=== PATIENT | male | born 1965 | race Caucasian/White ===

== ENCOUNTER → 2023-01-01 | Outpatient (REF) | payer MEDICARE, SELFPAY ==
[2023-01-01 08:25] LABS: Hematocrit 36.7 % (40-54); Hemoglobin 10.8 g/dL (13.0-16.5); Mean Corp Hgb Conc 29.4 g/dL (32-36); Mean Corpuscular Hgb 26.9 pg (27.0-32.0); Mean Corpuscular Volume 91.3 fL (80-94); POSITIVE MORPHOLOGY YES; Platelet Count 265 K/mm3 (150-450); RBC Distribution Width SD 70.1 fl (35.1-43.9); Red Blood Count 4.02 M/mm3 (4.6-6.2); White Blood Count 9.5 K/mm3 (4.4-11.0)
[2023-01-01 08:27] LABS: Scan Indicated on CBC? Y/N YES- FLAGS NOTED
[2023-01-01 08:37] LABS: Vitamin D,25 Hydroxy 76.6 ng/mL
[2023-01-01 08:46] LABS: International Normalized Ratio 2.3; Prothrombin Time (Protime)PT. 25.4 SECONDS (11.7-14.9)
[2023-01-01 08:59] LABS: ALB/GLOB Ratio 0.4 RATIO (0.9-2.4); AST(SGOT) 41 U/L (15-37); Alanine Aminotransfer ALT/SGPT 25 U/L (16-61); Albumin, Serum 1.3 g/dL (3.2-5.0); Alkaline Phosphatase 212 U/L (45-117); Anion Gap 4 (5-15); BUN 8 mg/dL (7-18); BUN/Creat Ratio 12.1 RATIO (10-20); Calcium,Total 7.5 mg/dL (8.5-10.1); Chloride 108 mmol/L (98-107); Cholesterol 79 mg/dL (200); Creatinine, Serum 0.66 mg/dL (0.70-1.30); EST Glomerular Filtration Rate 133 mL/min (>60); Est Glom Filt Rate - Afr Amer 160 mL/min (>60); Globulin 3.6 g/dL (2.2-4.2); Glucose 91 mg/dL (74-106); High Density Lipoprotein 14 mg/dL; Magnesium 1.8 mg/dL (1.6-2.6); Potassium 4.1 mmol/L (3.5-5.1); Protein, Total 4.9 g/dL (6.4-8.2); Sodium Level 141 mmol/L (136-145); Thyroid Stim Hormone (TSH) 2.66 uIU/mL (0.358-3.74); Triglycerides 69 mg/dL; Very Low Density Lipoprotein 14 mg/dL (5-40)
[2023-01-01 20:24] LABS: Hemoglobin A1c 4.4 % (3.8-5.6)
== END ==
LOC: OLS.ACW300 05:00
PROVIDERS: Visit Provider Family Medicine
DX: T81.32XD Disruption of internal operation (surgical) wound, not elsewhere classified, subsequent encounter (principal); D64.9 Anemia, unspecified; E27.2 Addisonian crisis
CPT/HCPCS: 36415; 80053; 80061; 82306; 83036; 83735; 84443; 85027; 85610

== ENCOUNTER → 2023-01-04 | Outpatient (REF) | payer MEDICARE, SELFPAY ==
[2023-01-04 07:21] LABS: Prothrombin Time Fingerstick 32.5 SEC (11.7-14.9)
== END ==
LOC: OLS.ACW300 05:00
PROVIDERS: PCP Family Medicine; Visit Provider Family Medicine
DX: Z79.01 Long term (current) use of anticoagulants (principal)
CPT/HCPCS: 36416; 85610

== ENCOUNTER → 2023-02-06 | Outpatient (REF) | payer MEDICARE, SELFPAY ==
[2023-02-06 11:36] LABS: Hematocrit 30.9 % (40-54); Hemoglobin 9.3 g/dL (13.0-16.5); Mean Corp Hgb Conc 30.1 g/dL (32-36); Mean Corpuscular Hgb 27.7 pg (27.0-32.0); Mean Platelet Vol. 10.7 fl (6.2-12.0); Platelet Count 212 K/mm3 (150-450); RBC Distribution Width CV 17.3 % (11.6-14.6); RBC Distribution Width SD 58.2 fl (35.1-43.9); Red Blood Count 3.36 M/mm3 (4.6-6.2); White Blood Count 4.9 K/mm3 (4.4-11.0)
[2023-02-06 11:45] LABS: International Normalized Ratio 1.3; Prothrombin Time (Protime)PT. 16.1 SECONDS (11.7-14.9)
[2023-02-06 11:56] LABS: Vitamin D,25 Hydroxy 62.9 ng/mL
[2023-02-06 12:13] LABS: ALB/GLOB Ratio 0.5 RATIO (0.9-2.4); AST(SGOT) 30 U/L (15-37); Alanine Aminotransfer ALT/SGPT 19 U/L (16-61); Albumin, Serum 2.1 g/dL (3.2-5.0); Alkaline Phosphatase 93 U/L (45-117); Anion Gap 6 (5-15); BUN 9 mg/dL (7-18); BUN/Creat Ratio 10.3 RATIO (10-20); Calcium,Total 8.1 mg/dL (8.5-10.1); Chloride 108 mmol/L (98-107); Cholesterol 111 mg/dL (200); Creatinine, Serum 0.87 mg/dL (0.70-1.30); EST Glomerular Filtration Rate 96 mL/min (>60); Est Glom Filt Rate - Afr Amer 117 mL/min (>60); Glucose 75 mg/dL (74-106); High Density Lipoprotein 58 mg/dL; Potassium 3.4 mmol/L (3.5-5.1); Protein, Total 6.1 g/dL (6.4-8.2); Sodium Level 139 mmol/L (136-145); Thyroid Stim Hormone (TSH) 3.73 uIU/mL (0.358-3.74); Triglycerides 55 mg/dL; Very Low Density Lipoprotein 11 mg/dL (5-40)
[2023-02-06 13:30] LABS: Hemoglobin A1c 4.2 % (3.8-5.6)
== END ==
LOC: OLS.ACW300 06:30
PROVIDERS: PCP Family Medicine; Visit Provider Family Medicine
DX: Z79.01 Long term (current) use of anticoagulants (principal); E55.9 Vitamin D deficiency, unspecified; Z79.899 Other long term (current) drug therapy; T81.32XA Disruption of internal operation (surgical) wound, not elsewhere classified, initial encounter; S30.1XXA Contusion of abdominal wall, initial encounter
CPT/HCPCS: 36415; 80053; 80061; 82306; 83036; 84443; 85027; 85610

== ENCOUNTER → 2023-02-07 | Outpatient (REF) | payer MEDICARE, SELFPAY ==
[2023-02-07 08:19] LABS: INR Fingerstick 1.5; Prothrombin Time Fingerstick 16.7 SEC (11.7-14.9)
== END ==
LOC: OLS.ACW300 05:00
PROVIDERS: PCP Family Medicine; Visit Provider Family Medicine
DX: Z79.01 Long term (current) use of anticoagulants (principal)
CPT/HCPCS: 36416; 85610

== ENCOUNTER → 2023-02-08 | Outpatient (REF) | payer MEDICARE, SELFPAY ==
[2023-02-08 08:59] LABS: International Normalized Ratio 1.4; Prothrombin Time (Protime)PT. 17.4 SECONDS (11.7-14.9)
== END ==
LOC: OLS.ACW300 06:00
PROVIDERS: PCP Family Medicine; Visit Provider Family Medicine
DX: Z79.01 Long term (current) use of anticoagulants (principal); T81.32XD Disruption of internal operation (surgical) wound, not elsewhere classified, subsequent encounter; M62.81 Muscle weakness (generalized); D64.9 Anemia, unspecified; W19.XXXD Unspecified fall, subsequent encounter
CPT/HCPCS: 36415; 85610

== ENCOUNTER → 2023-02-09 08:10 | Outpatient (REF) | payer MEDICARE, SELFPAY ==
[2023-02-09 09:40] LABS: International Normalized Ratio 1.5; Prothrombin Time (Protime)PT. 18.6 SECONDS (11.7-14.9)
== END ==
LOC: PR 08:10
PROVIDERS: PCP Family Medicine; Visit Provider Family Medicine
DX: T81.32XD Disruption of internal operation (surgical) wound, not elsewhere classified, subsequent encounter (principal); S30.1XXD Contusion of abdominal wall, subsequent encounter; R27.9 Unspecified lack of coordination
CPT/HCPCS: 36415; 85610

== ENCOUNTER → 2023-02-11 | Outpatient (REF) | payer MEDICARE, SELFPAY ==
[2023-02-11 08:09] LABS: Prothrombin Time Fingerstick 31.9 SEC (11.7-14.9)
== END ==
LOC: OLS.ACW300 05:00
PROVIDERS: PCP Family Medicine; Visit Provider Family Medicine
DX: Z79.01 Long term (current) use of anticoagulants (principal)
CPT/HCPCS: 36416; 85610

== ENCOUNTER → 2023-02-12 | Outpatient (REF) | payer MEDICARE, SELFPAY ==
[2023-02-12 11:06] LABS: International Normalized Ratio 2.8; Prothrombin Time (Protime)PT. 29.7 SECONDS (11.7-14.9)
== END ==
LOC: OLS.ACW300 09:40
PROVIDERS: PCP Family Medicine; Visit Provider Family Medicine
DX: Z79.01 Long term (current) use of anticoagulants (principal); Z86.711 Personal history of pulmonary embolism
CPT/HCPCS: 36415; 85610

== ENCOUNTER → 2023-02-13 | Outpatient (REF) | payer MEDICARE, SELFPAY ==
[2023-02-13 09:05] LABS: INR Fingerstick 2.6; Prothrombin Time Fingerstick 27.7 SEC (11.7-14.9)
== END ==
LOC: OLS.ACW300 05:00
PROVIDERS: PCP Family Medicine; Visit Provider Family Medicine
DX: Z79.01 Long term (current) use of anticoagulants (principal); Z79.899 Other long term (current) drug therapy
CPT/HCPCS: 36416; 85610

== ENCOUNTER → 2023-07-19 | Outpatient (REF) | payer MEDICARE, SELFPAY ==
[2023-07-19 08:21] LABS: Hematocrit 31.8 % (40-54); Hemoglobin 9.7 g/dL (13.0-16.5); Mean Corp Hgb Conc 30.5 g/dL (32-36); Mean Corpuscular Volume 95.2 fL (80-94); Mean Platelet Vol. 10.8 fl (6.2-12.0); POSITIVE MORPHOLOGY YES; Platelet Count 330 K/mm3 (150-450); RBC Distribution Width CV 21.4 % (11.6-14.6); RBC Distribution Width SD 75.7 fl (35.1-43.9); Red Blood Count 3.34 M/mm3 (4.6-6.2); White Blood Count 6.9 K/mm3 (4.4-11.0)
[2023-07-19 08:27] LABS: Scan Indicated on CBC? Y/N YES- FLAGS NOTED
[2023-07-19 08:33] LABS: Vitamin D,25 Hydroxy 26.7 ng/mL
[2023-07-19 08:51] LABS: Hemoglobin A1c 4.5 % (3.8-5.6)
[2023-07-19 09:09] LABS: Differential Comment SCANNED
[2023-07-19 09:19] LABS: Prothrombin Time (Protime)PT. 22.4 SECONDS (11.7-14.9)
[2023-07-19 10:18] LABS: ALB/GLOB Ratio 0.5 RATIO (0.9-2.4); AST(SGOT) 28 U/L (15-37); Alanine Aminotransfer ALT/SGPT 22 U/L (16-61); Albumin, Serum 1.6 g/dL (3.2-5.0); Alkaline Phosphatase 109 U/L (45-117); Anion Gap 5 (5-15); BUN 7 mg/dL (7-18); BUN/Creat Ratio 7.5 RATIO (10-20); Calcium,Total 7.4 mg/dL (8.5-10.1); Chloride 105 mmol/L (98-107); Cholesterol 149 mg/dL (200); Creatinine, Serum 0.93 mg/dL (0.70-1.30); EST Glomerular Filtration Rate 89 mL/min (>60); Est Glom Filt Rate - Afr Amer 108 mL/min (>60); Globulin 3.4 g/dL (2.2-4.2); Glucose 48 mg/dL (74-106); High Density Lipoprotein 57 mg/dL; Magnesium 1.8 mg/dL (1.6-2.6); Potassium 3.3 mmol/L (3.5-5.1); Sodium Level 139 mmol/L (136-145); Thyroid Stim Hormone (TSH) 5.89 uIU/mL (0.358-3.74); Triglycerides 83 mg/dL; Uric Acid 6.6 mg/dL (3.5-7.2); Very Low Density Lipoprotein 17 mg/dL (5-40)
== END ==
LOC: OLS.ACW300 05:00
PROVIDERS: PCP Family Medicine; Visit Provider Family Medicine
DX: G93.40 Encephalopathy, unspecified (principal); S30.1XXD Contusion of abdominal wall, subsequent encounter; M62.81 Muscle weakness (generalized)
CPT/HCPCS: 36415; 80053; 80061; 82306; 83036; 83735; 84443; 84550; 85027; 85610

== ENCOUNTER → 2023-07-22 | Outpatient (REF) | payer MEDICARE, SELFPAY ==
[2023-07-22 08:03] LABS: INR Fingerstick 1.8
== END ==
LOC: OLS.ACW300 05:00
PROVIDERS: PCP Family Medicine; Visit Provider Family Medicine
DX: Z79.01 Long term (current) use of anticoagulants (principal)
CPT/HCPCS: 36416; 85610